=== PATIENT | male | born 1950 | race Caucasian/White ===

== ENCOUNTER 2024-11-22 19:57 | Emergency (ER) | payer OTHER, SELFPAY ==
[2024-11-22 20:07] VITALS: BP 134/77; PULSE 72; RESP 15; TEMP 36.5; O2SAT 96; BMI 26.7
--- NOTE | 2024-11-22 20:26 | DI.RAD.S_ITS ---
PROCEDURE: XR CHEST 1V INDICATIONS: Chest Pain TECHNIQUE: One view of the chest was acquired. COMPARISON: None. FINDINGS: Surgical changes and devices: None. Lungs and pleura: Lungs are clear. No pleural effusions or pneumothorax. Mediastinum: Mediastinal contours appear normal. Heart size is normal. Bones and chest wall: No suspicious bony lesions. Overlying soft tissues appear unremarkable. IMPRESSION: No acute pulmonary process. Dictated by: Arleth Cote M.D. on 11/22/2024 at 20:50 Approved by: Arleth Cote M.D. on 11/22/2024 at 20:51
[2024-11-22 20:31] LABS: Add Manual Diff / Slide Review NO; Hematocrit 39.7 % (41-53); Hemoglobin 13.7 g/dL (13.5-17.5); Lymphocytes Absolute Auto 2000 /uL (1100-4500); Mean Corpuscular HGB Conc 34.5 % (30-36); Mean Corpuscular Hemoglobin 31.1 PG (26-34); Mean Corpuscular Volume 89.9 fL (80-100); Platelet Count 211 X10^3/uL (150-400)
--- NOTE | 2024-11-22 20:32 | EKG_ITS ---
[address] [address] Test Date: 2024-11-22 Pat Name: Skye Motnalvo Department: [facility] Room: Gender: Male Maintenance Aide: VINCE ESQUIVEL : 1950 Requested By: Order Number: [id number] Reading MD: Vinod Parrish Measurements Intervals [place] Rate: 58 P: 61 IN: 202 QRS: 7 QRSD: 94 T: 32 QT: 384 QTc: 376 Interpretive Statements Sinus bradycardia Electronically Signed On 11-25-2024 13:42:06 PDT by Vinod Parrish
[2024-11-22 20:38] LABS: INR 1.0 (0.9-1.3); Prothrombin Time 11.5 SECONDS (9.4-12.5)
[2024-11-22 20:41] LABS: Alanine Aminotransferase 33 IU/L (<50); Albumin 4.1 g/dL (3.5-5.0); Albumin Globulin Ratio 1.8 (1.0-2.8); Alkaline Phosphatase 44 U/L (38-126); Blood Urea Nitrogen 25 mg/dL (9-20); Calcium 9.3 mg/dL (8.4-10.2); Carbon Dioxide 25 mmol/L (22-32); Chloride 101 mmol/L (98-107); Creatine Kinase 174 U/L (55-170); Estimated Glomerular Filt Rate > 60 mL/min (>60); Globulin 2.3 g/dL (1.7-4.1); Glucose 129 mg/dL (70-99); HEMOLYSIS 18 (0-50); Magnesium 2.1 mg/dL (1.6-2.3); PTT Partial Thromboplastin Tim 28 SECONDS (25.1-36.5); Potassium 4.1 mmol/L (3.4-5.1); Sodium 132 mmol/L (137-145); Total Protein 6.4 g/dL (6.3-8.2)
[2024-11-22 20:53] LABS: NT-proBNP (BNP-Adult 18+) 87 pg/mL (<450); Troponin I < 0.012 ng/mL (0.01-0.034)
--- NOTE | 2024-11-22 21:00 | ED.CHESTPAIN ---
HPI - Chest Pain General Chief Complaint: Chest Pain Stated Complaint: chest tightness Time Seen by Provider: 11/22/24 20:03 Source: patient Mode of arrival: Ambulatory Limitations: no limitations History of Present Illness HPI narrative: 74-year-old gentleman history of hypertension,sarcoidosis, prostate cancer status post treatment, depression, presents with chest tightness since last evening for which he took 1 aspirin. He had pain across the chest that is intermittent and does not change with rest or activity. In fact he went on a mountain bike ride today for 20 minutes and was asymptomatic at that time. He denies fever, chills, cough, diaphoresis, nausea, vomiting, back pain, radiating symptoms, leg pain or swelling. He has had no cardiac stress tests in the remote past. Other than what is stated 14 point review of system is negative. Related Data Home Medications ?Medication ?Instructions ?Recorded ?Confirmed amlodipine 2.5 mg tablet 2.5 mg PO DAILY 11/22/24 11/22/24 bupropion HCl 150 mg tablet,12 hr 150 mg PO BID 11/22/24 11/22/24 sustained-release doxycycline hyclate 20 mg tablet 20 mg PO DAILY 11/22/24 11/22/24 tamsulosin 0.4 mg capsule 0.4 mg PO DAILY 11/22/24 11/22/24 Allergies Allergy/AdvReac Type Severity Reaction Status Date / Time No Known Drug Allergies Allergy Verified 11/22/24 20:05 Review of Systems Review of Systems ROS Unobtainable: All systems reviewed & are unremarkable except as noted in HPI and below Patient History Social History Smoking Status: Never smoker Smoking Status: Never smoker Exam Narrative Exam Narrative: GENERAL: [74] year old patient appears stated age. Well-developed patient, in mild distress. HEAD: Atraumatic. Normocephalic. EYES: Pupils equal round and reactive. Extraocular motions intact. No scleral icterus. No injection or drainage. ENT: Nose without bleeding, purulent drainage. Throat without erythema, tonsillar hypertrophy or exudate. Airway patent. NECK: Trachea midline. Non tender CARDIOVASCULAR: Regular rate and rhythm without murmurs, gallops, or rubs. RESPIRATORY: Clear to auscultation. Breath sounds equal bilaterally. No wheezes, rales, or rhonchi. GASTROINTESTINAL: Abdomen soft, non-tender, nondistended. EXTREMITIES: No edema or joint tenderness. BACK: Nontender without deformity or crepitance. No flank tenderness. NEURO: AOx3. SKIN: No rash or erythema of visible areas Initial Vital Signs Initial Vital Signs: Vital Signs Temperature 97.7 F 11/22/24 20:07 Pulse Rate 72 11/22/24 20:07 Respiratory Rate 15 11/22/24 20:07 Blood Pressure 134/77 11/22/24 20:07 Pulse Oximetry 96 11/22/24 20:07 Oxygen Delivery Method Room Air 11/22/24 20:07 Scores HEART Score Heart Score history: Slightly Suspicious Heart Score EKG: Normal Heart Score Age: > or = 65 years old Heart Score risk factors: 1-2 risk factors Heart Score troponin: < or = to normal limit Heart Score Total: 3 Course Orders Ordered: ED Orders 11/22/24 20:23 Complete Blood Count AUTO DIFF Stat Comprehensive Metabolic Panel Stat Magnesium Stat NT-proBNP (BNP-Adult 18+) Stat PTT Partial Thromboplastin Leo Stat Prothrombin Time INR Stat Troponin & CK Cardiac Panel Stat 11/22/24 20:26 XR chest 1V Stat EKG-12 Lead Stat 11/22/24 22:12 Troponin I Stat Discontinued Medications Aspirin (Aspirin 81 Mg Chew Tab) 324 mg PO NOW ONE Stop: 11/22/24 20:27 Last Admin: 11/22/24 21:18 Dose: 324 mg Documented By: ELLI Aspirin (Aspirin Ec 325 Mg Tablet) 325 mg PO NOW ONE Stop: 11/22/24 21:14 Last Admin: 11/22/24 21:24 Dose: Not Given Documented By: ELLI Vital Signs Vital signs: Vital Signs - 8 hr 11/22/24 20:07 Temperature 97.7 F Pulse Rate 72 Respiratory Rate 15 Blood Pressure 134/77 Pulse Oximetry 96 Oxygen Delivery Method Room Air MDM - Chest Pain Lab Data 11/22/24 20:23 11/22/24 20:23 Labs: Lab Results 11/22/24 Range/Units 20:23 WBC 7.5 (4.5-11.0) X10^3/uL RBC 4.42 L (4.5-5.9) X10^6/uL Hgb 13.7 (13.5-17.5) g/dL Hct 39.7 L (41-53) % MCV 89.9 (80-100) fL MCH 31.1 (26-34) PG MCHC 34.5 (30-36) % RDW 13.9 (11.6-14.8) % Plt Count 211 (150-400) X10^3/uL Neut % (Auto) 65.3 (50-75) % Lymph % (Auto) 27.1 (25-40) % Andrews % (Auto) 6.3 (3-14) % Eos % (Auto) 0.9 L (2-4) % Baso % (Auto) 0.4 (0-2) % Neut # (Auto) 4900 (2935-3998) /uL Lymph # (Auto) 2000 (3692-2793) /uL Andrews # (Auto) 500 (0-900) /uL Eos # (Auto) 100 (0-450) /uL Baso # (Auto) 0 (0-100) /uL PT 11.5 (9.4-12.5) SECONDS INR 1.0 (0.9-1.3) APTT 28 (25.1-36.5) SECONDS Sodium 132 L (137-145) mmol/L Potassium 4.1 (3.4-5.1) mmol/L Chloride 101 (98-107) mmol/L Carbon Dioxide 25 (22-32) mmol/L BUN 25 H (9-20) mg/dL Creatinine 0.94 (0.66-1.25) mg/dL Estimated GFR > 60 (>60) mL/min BUN/Creatinine Ratio 26.6 H (6-22) Glucose 129 H (70-99) mg/dL Calcium 9.3 (8.4-10.2) mg/dL Magnesium 2.1 (1.6-2.3) mg/dL Total Bilirubin 0.7 (0.2-1.3) mg/dL AST 37 (17-59) IU/L ALT 33 (<50) IU/L Alkaline Phosphatase 44 (38-126) U/L Total Creatine Kinase 174 H (55-170) U/L Troponin I < 0.012 (0.01-0.034) ng/mL NT-Pro-B Natriuret Pep 87 (<450) pg/mL Total Protein 6.4 (6.3-8.2) g/dL Albumin 4.1 (3.5-5.0) g/dL Globulin 2.3 (1.7-4.1) g/dL Albumin/Globulin Ratio 1.8 (1.0-2.8) Imaging Data Chest x-ray: Radiologist's Impression: [address] [address] XRay Report Signed Patient: Skye Montalvo MR#: [id number] : 1950 Acct:[id number] Age/Sex: 74 / M Date of Service: 11/22/24 Loc: ED Accession Number: [id number] Procedure: XR chest 1V Ordering Provider: Cayden Gayle D.O. PROCEDURE: XR CHEST 1V INDICATIONS: Chest Pain TECHNIQUE: One view of the chest was acquired. COMPARISON: None. FINDINGS: Surgical changes and devices: None. Lungs and pleura: Lungs are clear. No pleural effusions or pneumothorax. Mediastinum: Mediastinal contours appear normal. Heart size is normal. Bones and chest wall: No suspicious bony lesions. Overlying soft tissues appear unremarkable. IMPRESSION: No acute pulmonary process. ECG Data Interpretation: Sinus Pj Hr 58 ND 202 QRS [address]-t wave change No previous EKG to compare MDM Narrative Medical decision making narrative: Vital signs, nurse triage note, medication list, previous ER visits, and all imaging study reviewed. Chest x-ray showed no acute process. Two sets of troponin normal. Patient given aspirin here. EKG shows sinus bradycardia at heart rate of 58 with no STT wave changes. Heart score of 3. Differential diagnosis anxiety, GERD, unstable angina, STEMI NSTEMI. He is asymptomatic and chest pain-free. Will DC home to follow up PCP this coming week and to return with new or worsening symptoms. Discharge Plan Departure Patient Disposition: Home Clinical Impression: Chest pain Instructions: DI for Chest Pain Activity Restrictions/Additional Instructions: Return with new or worsening symptoms. Follow up PCP once you return back to [place]. Prescriptions: No Action bupropion HCl 150 mg tablet sustained-release 12 hr 150 mg PO BID amlodipine 2.5 mg tablet 2.5 mg PO DAILY tamsulosin 0.4 mg capsule 0.4 mg PO DAILY doxycycline hyclate 20 mg tablet 20 mg PO DAILY Stand Alone Forms: Patient Portal/API
[2024-11-22] MEDS: ASPIRIN 81 MG CHEW TAB 324 MG PO (21:18)
[2024-11-22 22:44] LABS: Troponin I < 0.012 ng/mL (0.01-0.034)
[2024-11-22 23:16] VITALS: BP 146/87; PULSE 87; RESP 16; O2SAT 98
== END 2024-11-22 23:36 | disposition home or self-care (01) ==
PROVIDERS: Emergency Provider Family Medicine
DX: R07.9 Chest pain, unspecified (principal); I10 Essential (primary) hypertension; R00.1 Bradycardia, unspecified
CPT/HCPCS: 36415; 71045; 80053; 82550; 83735; 83880; 84484; 85025; 85610; 85730; 93005; 99284